=== PATIENT | female | born 2000 | race Caucasian/White ===

== ENCOUNTER 2023-12-03 19:00 | Inpatient (IN) | payer OTHER ==
[2023-12-04 00:45] VITALS: BMI 36.8
[2023-12-04] MEDS ORDERED: Diphenoxylate HCl/Atropine Tablet PO PRN (02:25)
[2023-12-04] MEDS ORDERED: Tranexamic Acid 1,000 MG/10 ML VIAL IVP PRN (02:25)
[2023-12-04] MEDS ORDERED: Carboprost 250 MCG/ML AMP IM PRN (02:25)
[2023-12-04] MEDS ORDERED: hydrALAZINE 20 MG/ML VIAL SLOW IVP PRN ×2 (02:25→22:10)
[2023-12-04] MEDS ORDERED: Lidocaine 1% (PF) 30 ML VIAL SC PRN (02:25)
[2023-12-04] MEDS ORDERED: Promethazine HCl 25 MG/ML VIAL IM PRN (02:25)
[2023-12-04] MEDS ORDERED: Ondansetron PF 4 MG/2 ML Vial IVP PRN (02:25)
[2023-12-04] MEDS ORDERED: Methylergonovine 0.2 MG/ML VIAL IM PRN (02:25)
[2023-12-04] MEDS ORDERED: Misoprostol 200 MCG TAB PR PRN (02:25)
[2023-12-04] MEDS ORDERED: Oxytocin 30 units/NS 500 ML 500 ML IV SCH ×3 (02:30)
[2023-12-04 03:19] LABS: Hematocrit 35.9 % (34.9-44.5); Mean Corpuscular HGB CONC 36.2 g/dL (32.0-36.0); Mean Corpuscular Hemoglobin 30.8 pg (27.0-33.0); Mean Corpuscular Volume 85.1 fL (81.6-98.3); Mean Platelet Volume 10.3 fL (7.4-10.4); Platelet Count 294 10x3/uL (150-450); RBC Distribution Width 13.9 % (11.5-14.5); Red Blood Cell (RBC) Count 4.22 10x6/uL (3.90-5.03); White Blood Cell (WBC) Count 10.7 10x3/uL (3.5-10.5)
[2023-12-04 03:23] LABS: #Basophils 0.01 10x3/uL (0.0-0.2); #Eosinphils 0.01 10x3/uL (0.0-0.5); #Monocytes 0.57 10x3/uL (0.0-1.1); #Neutrophils 7.51 10x3/uL (1.5-8.4); %Basophils 0.1 % (0.0-2.0); %Eosinophils 0.1 % (0.0-6.0); %Lymphocytes 19.7 % (18.0-47.0); %Monocytes 5.6 % (0.0-10.0); %Neutrophils 74.1 % (40.0-75.0); Hematocrit 33.2 % (34.9-44.5); Hemoglobin 11.7 g/dL (12.0-15.5); Mean Corpuscular HGB CONC 35.2 g/dL (32.0-36.0); Mean Corpuscular Hemoglobin 30.2 pg (27.0-33.0); Mean Corpuscular Volume 85.8 fL (81.6-98.3); Mean Platelet Volume 9.4 fL (7.4-10.4); Platelet Count 267 10x3/uL (150-450); RBC Distribution Width 14.1 % (11.5-14.5); Red Blood Cell (RBC) Count 3.87 10x6/uL (3.90-5.03); White Blood Cell (WBC) Count 10.1 10x3/uL (3.5-10.5)
[2023-12-04 03:38] LABS: ALT (SGPT) 7 U/L (8-55); AST (SGOT) 13 U/L (5-34); Albumin 3.1 g/dL (3.5-5.0); Alkaline Phosphatase 160 U/L (40-110); Anion Gap 14 mmol/L (10-20); BUN (Urea Nitrogen) 5 mg/dL (7.0-18.7); Bilirubin, Total 0.4 mg/dL (0.2-1.2); Calc. Creatinine Clearance 216 mL/min (70-130); Calcium 9.5 mg/dL (7.8-10.44); Carbon Dioxide 19 mmol/L (22-29); Chloride 107 mmol/L (98-107); Estimated GFR 127; Globulin 3.9 g/dL (2.4-3.5); Glucose 86 mg/dL (70-105); Potassium 3.5 mmol/L (3.5-5.1); Sodium 136 mmol/L (136-145)
[2023-12-04 03:52] LABS: HBsAg Index 0.18 S/CO (0-0.99); Hep B Surf Ag - L&D Non-Reactive S/CO (NonReactive)
[2023-12-04 03:53] LABS: Syphilis Antibody Nonreactive (Nonreactive); Syphilis Antibody Index 0.03 S/CO (<1.00 Non-Reactive)
[2023-12-04] MEDS ORDERED: fentaNYL 50 mcg/mL 1 mL Vial SLOW IVP PRN (18:44)
[2023-12-04] MEDS: fentaNYL 50 mcg/mL 1 mL Vial SLOW IVP SCH (19:03)
[2023-12-04] MEDS ORDERED: Milk Of Magnesia 30 ML UDCUP PO PRN (22:10)
[2023-12-04] MEDS ORDERED: Bisacodyl 10 MG SUPP PR PRN (22:10)
[2023-12-04] MEDS ORDERED: Acetaminophen/Codeine 30-300mg Tablet PO PRN (22:10)
[2023-12-04] MEDS: Ibuprofen 800 MG TAB PO SCH (22:43)
[2023-12-04] MEDS: Witch Hazel 100 PAD JAR TOP PRN (23:37)
[2023-12-05] MEDS: Ibuprofen 800 MG TAB PO SCH (05:34)
[2023-12-05] MEDS: Misoprostol 100 MCG TAB VAG SCH (07:38)
[2023-12-05] MEDS: Boostrix 0.5 ML (Tdap) VIAL (>/=7 yrs of age) IM ONE (07:39)
[2023-12-05] MEDS: Ferrous Sulfate 325 MG TAB PO SCH (07:40)
[2023-12-05] MEDS: Docusate 100 MG CAP PO SCH (09:12)
[2023-12-05 19:54] VITALS: BP 130/63; TEMP 97.6
== END 2023-12-05 21:33 | disposition home or self-care (01) | DRG 807 ==
LOC: UNDOADMIN 21:03 → CSHLD 21:03 → CSHPP 12-04 21:20
PROVIDERS: ADMIT Obstetrics & Gynecology; ATTEND Obstetrics & Gynecology
PROC: 10E0XZZ Delivery of Products of Conception, External Approach (ICD-10-PCS; principal; 2023-12-04)
PROC: 10907ZC Drainage of Amniotic Fluid, Therapeutic from Products of Conception, Via Natural or Artificial Opening (ICD-10-PCS; 2023-12-04)
DX: O10.92 Unspecified pre-existing hypertension complicating childbirth (principal); Z37.0 Single live birth; Z3A.39 39 weeks gestation of pregnancy; O26.893 Other specified pregnancy related conditions, third trimester; Z67.11 Type A blood, Rh negative; O99.214 Obesity complicating childbirth; Z79.82 Long term (current) use of aspirin; O70.0 First degree perineal laceration during delivery
CPT/HCPCS: 36415; 80053; 82570; 84156; 85027; 86780; 86850; 86900; 86901; 87340; J3010